=== PATIENT | female | born 1960 | race Two or more races ===

== ENCOUNTER 2020-01-13 14:46 | Emergency (ER) | payer OTHER ==
[~2020-01-13] VITALS: Ht 157.5 cm; Wt 90.7 kg
[2020-01-13 15:10] VITALS: BP 153/82
--- NOTE | 2020-01-13 16:12 | Emergency Room Report ---
History of Present Illness General Chief Complaint: Flu Like Symptoms Source: Patient Present Illness HPI 59-year-old female presents to the emergency department complaining of 7 out of 10 severity persistent cough with sore throat intermittently x1 month. Patient reports she was evaluated and prescribed Tessalon Perles which provided some relief of her symptoms however her symptoms returned shortly after discontinuation of the medication. She denies fevers or chills. She does report previous history of acid reflux in the past and is not currently taking anything for that. Patient also reports she is a daily smoker. Patient denies recent travel or ill contacts. She denies pain with swallowing. She denies nasal congestion or rhinorrhea. She denies swelling of the lower extremities, chest pain or palpitations. No other aggravating or relieving factors at this time. Allergies: Coded Allergies: No Known Allergies (Unverified , 01/13/20) Patient History Past Medical History: see triage record Past Surgical History: none Pertinent Family History: none Now: No Reviewed Nursing Documentation: PMH: Agreed; PSxH: Agreed Nursing Documentation-PMH Past Medical History: No Stated History Review of Systems All Other Systems: negative except mentioned in HPI Physical Exam Vital Signs Date Time Temp Pulse Resp B/P (MAP) Pulse Ox O2 Delivery O2 Flow Rate FiO2 01/13/20 15:01 97.3 86 19 168/82 (110) 95 Room Air Sp02 EP Interpretation: reviewed, normal General Appearance: no apparent distress, alert, GCS 15, non-toxic Head: normocephalic, atraumatic Eyes: bilateral eye normal inspection, bilateral eye PERRL ENT: hearing grossly normal, normal pharynx, normal voice, TMs + canals normal , uvula midline, moist mucus membranes Neck: full range of motion, no meningismus Respiratory: chest non-tender, lungs clear, normal breath sounds, speaking full sentences Cardiovascular #1: regular rate, rhythm, no edema Musculoskeletal: normal range of motion, gait/station normal, non-tender Neurologic: alert, motor strength/tone normal, oriented x3, sensory intact, responsive, speech normal Psychiatric: judgement/insight normal Skin: no rash, normal color Lymphatic: no adenopathy Medical Decision Making PA Attestation Dr. Hammond is my supervising Physician whom patient management has been discussed with. Diagnostic Impression: Primary Impression: Bronchitis Additional Impression: Cough present for greater than 3 weeks ER Course 59-year-old female presents to the emergency department complaining of 7 out of 10 severity persistent cough with sore throat intermittently x1 month. Patient reports she was evaluated and prescribed Tessalon Perles which provided some relief of her symptoms however her symptoms returned shortly after discontinuation of the medication. She denies fevers or chills. She does report previous history of acid reflux in the past and is not currently taking anything for that. Patient also reports she is a daily smoker. Patient denies recent travel or ill contacts. She denies pain with swallowing. She denies nasal congestion or rhinorrhea. She denies swelling of the lower extremities, chest pain or palpitations. No other aggravating or relieving factors at this time. Ddx considered but are not limited to URI, pneumonia, PE, strep pharyngitis, meningitis, acid reflux, COPD just to name a few Vital signs: Pt.is afebrile VS are WNL H&PE are most consistent with bronchitis, will also treat for acid reflux in case this is an underlying cause of persistent cough and airway sensitivity. ORDERS: none required at this time, the diagnosis is clinical ED INTERVENTIONS: None required at this time. -I do not identify an emergent condition at this time. With current presentation , pt. is stable for close outpatient follow up and conservative treatment. D/ w pt. to return promptly to ED with worsening or new symptoms.- Pt. verbalizes' understanding and agreement with proposed treatment plan. DISCHARGE: At this time pt. is stable for d/c to home. Will provide printed patient care instructions, and any necessary prescriptions. Care plan and follow up instructions have been discussed with the patient prior to discharge. Last Vital Signs Date Time Temp Pulse Resp B/P (MAP) Pulse Ox O2 Delivery O2 Flow Rate FiO2 01/13/20 15:01 97.3 86 19 168/82 (110) 95 Room Air Disposition: HOME, SELF-CARE Condition: Stable Scripts No Active Prescriptions or Reported Meds Patient Instructions: Acute Bronchitis, [id number] Additional Instructions: Take medications as directed. Follow up with a Primary Care Provider in 3-5 days, even if your symptoms have resolved. Return sooner to ED if new symptoms occur, or current symptoms become worse. Do not drink alcohol, drive, or operate heavy machinery while taking Cough Syrup as this may cause drowsiness. - Please note that this Emergency Department Report was dictated using [employer] technology software, occasionally this can lead to erroneous entry secondary to interpretation by the dictation equipment. Mariela Mcmanus Jan 13, 2020 16:12
[2020-01-13] MEDS ORDERED: ZANTAC150 MG ORAL (16:13)
[2020-01-13] MEDS ORDERED: PROMETHAZINE-C118 M1 ORAL (16:13)
[2020-01-13] MEDS ORDERED: PREDNISONE20 MG ORAL (16:13)
[2020-01-13 16:15] VITALS: BP 168/82
--- NOTE | 2020-01-13 16:15 | NUR ---
ED Nurse Note: Patient cleared for DC by Mariela AKHTAR. Patient AxO x 4, no s/s of acute distress. ID band removed. Patient walks with steady gait, took all belongings.
== END 2020-01-13 16:15 | disposition home or self-care (01) ==
LOC: EMR 15:45
DX: J20.9 Acute bronchitis, unspecified (principal); R05 Cough; F17.200 Nicotine dependence, unspecified, uncomplicated
CPT/HCPCS: 99282